=== PATIENT | male | born 1985 | race Caucasian/White ===

== ENCOUNTER 2019-03-21 08:45 | Outpatient (CLI) | payer BC ==
--- NOTE | 2019-03-21 09:38 | MMO ---
Bilateral MAMMO Bilat Diag [facility]. CLINICAL HISTORY: Patient is 34 years old and is seen for diagnostic exam. The patient has no family history of breast cancer. The patient has no personal history of cancer. VIEWS: The views performed were: bilateral craniocaudal with tomosynthesis; bilateral mediolateral oblique with tomosynthesis; and bilateral mediolateral with tomosynthesis. FILMS COMPARED: The present examination has been compared to a prior imaging study performed at [facility] on 03/21/2019. This study has been interpreted with the assistance of computer-aided detection. MAMMOGRAM FINDINGS: The breasts are almost entirely fat. Fat necrosis is seen in the region of palpable concern on the left. No mammographic or sonographic abnormalities in the region of palpable concern on the right. The patient is referred back to his clinician. Negative imaging findings should not preclude biopsy if clinical findings are suspicious. IMPRESSION: FAT NECROSIS IS SEEN IN THE REGION OF PALPABLE CONCERN ON THE LEFT. NO MAMMOGRAPHIC OR SONOGRAPHIC ABNORMALITIES IN THE REGION OF PALPABLE CONCERN ON THE RIGHT. THE PATIENT IS REFERRED BACK TO HIS CLINICIAN. NEGATIVE IMAGING FINDINGS SHOULD NOT PRECLUDE BIOPSY IF CLINICAL FINDINGS ARE SUSPICIOUS. 3BTHE RESULTS OF THIS EXAM WERE SENT TO THE PATIENT.0B ACR BI-RADS Category 2 - Benign finding MAMMOGRAPHY NOTE: 1. A negative mammogram report should not delay a biopsy if a dominant of clinically suspicious mass is present. 2. Approximately 10% to 15% of breast cancers are not detected by mammography. 3. Adenosis and dense breasts may obscure an underlying neoplasm. Reported by: MARGIE SWANSON MD Electonically Signed: [id number]
--- NOTE | 2019-03-21 10:41 | ULT ---
BILATERAL LIMITED BREAST ULTRASOUND: Date: 03/21/19 PROVIDED CLINICAL HISTORY: Bilateral breast palpable abnormalities. FINDINGS: Limited sonographic interrogation was performed of each breast in the region of palpable concern. The sonographic appearance of the breast parenchyma in these regions is normal. IMPRESSION: BI-RADS Category 1 - Negative. Negative imaging findings should not preclude further evaluation of a clinically suspicious area. The patient is referred back to his clinician. POS: OFF
== END 2019-03-21 08:46 | disposition home or self-care (01) ==
LOC: BICMAMMO 08:45
PROVIDERS: ATTEND Family Medicine Sports Medicine
DX: N63.0 Unspecified lump in unspecified breast (principal); N64.1 Fat necrosis of breast
CPT/HCPCS: 77066; G0279